=== PATIENT | female | born 1980 | race African-American/Black ===

== ENCOUNTER → 2018-01-21 | Outpatient (CLI) | payer OTHER ==
[2018-01-21 14:54] LABS: HEMATOCRIT 41.6 % (36.0-47.0); HEMOGLOBIN 14.3 g/dL (12.0-15.5); MEAN CORPUSCULAR HEMOGLOBIN 30.4 pg (27.0-33.4); MEAN CORPUSCULAR HGB CONC 34.3 g/dL (32.0-36.0); MEAN CORPUSCULAR VOLUME 89 fl (80-97); PLATELET COUNT 316 10^3/uL (150-450); RED BLOOD COUNT 4.69 10^6/uL (3.72-5.28); RED CELL DISTRIBUTION WIDTH 12.6 % (11.5-14.0); WHITE BLOOD COUNT 3.9 10^3/uL (4.0-10.5)
[2018-01-21 15:25] LABS: ALANINE AMINOTRANSFERASE 17 U/L (9-52); ALBUMIN 4.9 g/dL (3.5-5.0); ALKALINE PHOSPHATASE 31 U/L (38-126); AMYLASE 80 U/L (30-110); ANION GAP 17 (5-19); ASPARTATE AMINO TRANSFERASE 17 U/L (14-36); BILIRUBIN,DIRECT 0.5 mg/dL (0.0-0.4); BILIRUBIN,TOTAL 0.8 mg/dL (0.2-1.3); BLOOD UREA NITROGEN 13 mg/dL (7-20); CALCIUM 10.5 mg/dL (8.4-10.2); CARBON DIOXIDE 29 mmol/L (22-30); CHLORIDE 99 mmol/L (98-107); GLUCOSE 137 mg/dL (75-110); POTASSIUM 4.3 mmol/L (3.6-5.0); SODIUM 144.8 mmol/L (137-145); TOTAL PROTEIN 8.3 g/dL (6.3-8.2)
== END ==
LOC: OD 13:59
PROVIDERS: ATTEND Family Medicine
DX: R10.30 Lower abdominal pain, unspecified (principal)
CPT/HCPCS: 36415; 80053; 82150; 85027

== ENCOUNTER → 2018-05-15 | Outpatient (CLI) | payer OTHER ==
--- NOTE | 2018-05-15 11:31 | RADIOLOGY REPORT (SQ) ---
EXAM DESCRIPTION: MRI ABDOMEN COMBO COMPLETED DATE/TIME: 05/15/2018 8:31 am REASON FOR STUDY: ABN RADIOLOGICAL FINDING OF LIVER (K76.89) K76.89 OTHER SPECIFIED DISEASES OF [place] [facility] COMPARISON: Outside CT report and clinic notes. No comparison imaging. TECHNIQUE: T1, T1 in and out of phase, T2 fat sat, T1 post gadolinium sequences with attention to th e liver. MRCP also performed. CONTRAST TYPE AND DOSE: 20 mL Prohance. RENAL FUNCTION: None required. The patient is less than 50 years old. LIMITATIONS: None. FINDINGS: LIVER: Generally normal size and contours. Pre contrast imaging shows 2 tiny right lobe h yperintense T2 circumscribed lesions. Largest just under 8 mm. Slow enhancement, likely tiny bailey iomas. Pre contrast imaging of the left lobe looks generally normal. Immediate post contrast imagin g shows homogeneous enhancement. By 30 seconds and persisting out to 3 minutes, however, there is an inferior left lateral segment hepatic lobe irregularly marginated roughly ovoid hypointense lesion. Due to technical issues I cannot measure this but the lesion presumably corresponds to greater than 3 cm mass noted on outside CT. SPLEEN: Normal size. No focal lesions. PANCREAS: No masses. No adjacent inflammation or peripancreatic fluid collections. Pancreatic duct no t dilated. GALLBLADDER: No masses. No stones. No gallbladder wall thickening or pericholecystic fluid. ADRENAL GLANDS: No significant masses or asymmetry. RIGHT KIDNEY AND URETER: No masses. No hydronephrosis. LEFT KIDNEY AND URETER: No masses. No hydronephrosis. AORTA AND VESSELS: No aneurysm. No dissection. Renal arteries, SMA, celiac without stenosis. RETROPERITONEUM: No retroperitoneal adenopathy, hemorrhage or masses. BOWEL: No visualized masses. No inflammation. No significant dilatation. ABDOMINAL WALL AND PERITONEUM: No hernias. No free fluid. BONES: No acute or significant findings. OTHER: No other significant finding. MRCP: No strictures or filling defects. No duct dilatation. Common duct just over 4 mm. IMPRESSION: 1. Left hepatic lobe lesion initially enhances similar to liver with subsequent washout. In female a patient of this age with no history of primary malignancy or underlying cirrhosis, prob ably related to adenoma. Surveillance followup imaging may be warranted to exclude progression. 2. Subcentimeter right lobe probable hemangiomas. 2. Normal MRCP. TECHNICAL DOCUMENTATION: JOB ID: [id number] [email or web address]- All Rights Reserved Reading location - IP/workstation name: [email or web address]
== END ==
LOC: RAD 06:59
PROVIDERS: ATTEND Internal Medicine Gastroenterology
DX: K76.89 Other specified diseases of liver (principal)
CPT/HCPCS: 74183; A9576